=== PATIENT | female | born 1960 | race Caucasian/White ===

== ENCOUNTER 2019-11-01 15:39 | Outpatient (CLI) | payer OTHER | END 2019-11-01 15:40 | disposition critical access hospital (66) | LOC: EMS 15:39 | PROVIDERS: ATTEND Surgery | DX: M25.571 Pain in right ankle and joints of right foot (principal); X58.XXXA Exposure to other specified factors, initial encounter; Y93.01 Activity, walking, marching and hiking; Y92.838 Other recreation area as the place of occurrence of the external cause | CPT/HCPCS: A0425; A0427 ==

== ENCOUNTER 2019-11-01 15:47 | Emergency (ER) | payer OTHER ==
--- NOTE | 2019-11-01 15:54 | ED Physician Documentation ---
PD HPI LOWER EXT INJURY - Stated complaint Stated Complaint: FALL/ANKLE PAIN - History obtained from History obtained from: Patient, EMS - Additional information Additional information: She was hiking and slipped and fell. She hurt her right ankle. [place] a pop. Now unable to walk or bear weight. Pain was severe, now moderate and declines more pain medication after receiving some fentanyl on the way here. No other injuries. Review of Systems Constitutional: reports: Reviewed and negative Cardiac: reports: Reviewed and negative Respiratory: reports: Reviewed and negative PD PAST MEDICAL HISTORY - Past Medical History Past Medical History: No - Present Medications Home Medications: Ambulatory Orders Medication Instructions Recorded Confirmed Citalopram [CeleXA] 30 mg PO DAILY 01/16/13 01/16/13 Hydrocodone/Acetaminophen 1 - 2 each PO Q6H PRN #10 tablet 11/01/19 [Hydrocodon-Acetaminophen 5-325] - Allergies Allergies/Adverse Reactions: Allergies Allergy/AdvReac Type Severity Reaction Status Date / Time No Known Drug Allergies Allergy Verified 11/01/19 15:55 PD ED PE NORMAL - Vitals Vital signs reviewed: Yes - General General: Alert and oriented X 3, No acute distress - Neck Neck: Supple, no meningeal sign, No bony TTP - Abdomen Abdomen: Soft, Non tender - Back Back: No spinal TTP - Extremities Extremities: Other (Tender over the lateral malleolus of the right ankle, no deformity. No proximal fibular or foot tenderness. NVI in the foot.) - Neuro Neuro: Alert and oriented X 3, Normal speech Results - Vitals Vitals: Vital Signs - 24 hr 11/01/19 15:53 Temperature 37.3 C Heart Rate 90 Respiratory 18 Rate Blood Pressure 114/83 H O2 Saturation 96 Oxygen O2 Source Room air - Rads (name of study) R ankle 3v Radiology: EMP read contemporaneously (no frx) PD MEDICAL DECISION MAKING - ED course ED course: 59-year-old woman presents with an isolated ankle injury consistent with sprain versus lateral malleolus fracture. X-rays negative. Placed in air splint and up on crutches. Departure - Departure Disposition: 01 Home, Self Care Clinical Impression: Right ankle sprain Qualifiers: Encounter type: initial encounter Involved ligament of ankle: anterior talofibular ligament Qualified Code(s): S93.491A - Sprain of other ligament of right ankle, initial encounter Condition: Good Record reviewed to determine appropriate education?: Yes Instructions: ED Sprain Ankle Prescriptions: Hydrocodone/Acetaminophen [Hydrocodon-Acetaminophen 5-325] 1 - 2 each PO Q6H PRN #10 tablet PRN Reason: pain Comments: Recheck with your physician in 1 week if not improving, return for new or worsening symptoms. Do not drink or drive while taking narcotic pain medication. Note that many narcotic pain relievers also contain Tylenol/acetaminophen. Please ensure that your total dose of acetaminophen from all sources does not exceed 3 g (3000 mg) per day. You may get constipated while on this medication. Take a stool softener such as Colace twice a day while you are on it. Also add an [id number] laxative such as senna or MiraLAX on any day that you do not have a bowel movement. If you received a narcotic pain medication or sedative while in the emergency department, do not drive for the next 24 hours.
[2019-11-01 15:55] VITALS: BP 114/83
[2019-11-01] MEDS ORDERED: ACETAMINOPHEN 325 MG TABLET PO STA (16:28)
--- NOTE | 2019-11-01 16:33 | XRAY Report ---
PROCEDURE: Ankle 3 View RT INDICATIONS: ankle inj TECHNIQUE: 3 views of the ankle were acquired. COMPARISON: None FINDINGS: Bones: No fractures or dislocations. Ankle mortise is normally aligned. No suspicious bony lesions . Soft tissues: No tibiotalar joint effusion. Achilles tendon appears normal. Lateral soft tissue swe lling is noted and ligamentous injury cannot be excluded. IMPRESSION: No fracture. No osseous lesion. If there is continued clinical concern for pathology, then repeat natasha in film radiographs (7-10 days) or advanced imaging (CT, MR, bone scan) should be considered for furt her evaluation. Reviewed by: Mercedes Harkins MD, PhD on 11/01/2019 4:32 PM PDT Approved by: Mercedes Harkins MD, PhD on 11/01/2019 4:32 PM PDT Station ID: [id number]
== END 2019-11-01 17:07 | disposition home or self-care (01) ==
LOC: EDUNIT# → ED 15:47
DX: S93.491A Sprain of other ligament of right ankle, initial encounter (principal); W01.0XXA Fall on same level from slipping, tripping and stumbling without subsequent striking against object, initial encounter; Y93.01 Activity, walking, marching and hiking
CPT/HCPCS: 73610; 99283; 99284; A9270